=== PATIENT | female | born 1930 | race Two or more races ===

== ENCOUNTER 2018-06-04 00:20 | Emergency (ER) | payer OTHER ==
[~2018-06-04] VITALS: Ht 152.4 cm; Wt 75.7 kg
[~2018-06-04 00:20] MED LIST: ATORVASTATIN CA40 MG; ENALAPRIL MALEA20 MG; LASIX20 MG; METOPROLOL SUC100 MG; PACERONE200 MG; PENTOXIFYLLINE400 MG
[2018-06-04] MEDS ORDERED: NABUMETONE750 MG PO (02:52)
== END 2018-06-04 02:59 | disposition home or self-care (01) ==
LOC: ER 00:20
DX: S70.02XA Contusion of left hip, initial encounter (principal); S40.012A Contusion of left shoulder, initial encounter; M12.512 Traumatic arthropathy, left shoulder; W06.XXXA Fall from bed, initial encounter; Y93.89 Activity, other specified; Y92.89 Other specified places as the place of occurrence of the external cause; Y99.8 Other external cause status

== ENCOUNTER → 2020-03-11 | Emergency (ER) | payer OTHER ==
[~2020-03-11] VITALS: Ht 121.9 cm; Wt 68.5 kg
[~2020-03-11] MED LIST changes: +CHILDREN'S ASPI81 MG; +NABUMETONE750 MG PO
== END | disposition home or self-care (01) ==
LOC: ER 13:08
DX: S70.01XA Contusion of right hip, initial encounter (principal); S30.0XXA Contusion of lower back and pelvis, initial encounter; W18.39XA Other fall on same level, initial encounter; Y93.89 Activity, other specified; Y92.098 Other place in other non-institutional residence as the place of occurrence of the external cause; Y99.8 Other external cause status